=== PATIENT | male | born 1975 | race Two or more races ===

== ENCOUNTER 2018-09-20 00:40 | Emergency (ER) | payer OTHER ==
[~2018-09-20] VITALS: Ht 160 cm; Wt 68.9 kg
--- NOTE | 2018-09-20 01:01 | NUR ---
ED Nurse Note: PT AMBULATED TO ED C/O R UPPER EYEBROW HEAD LAC X 1 HOUR S/P ACCIDENTLY GETTING HIT ON HEAD BY GLASS. LACERATION CLEANLY DRESSED PRIOR TO ARRIVAL.
--- NOTE | 2018-09-20 01:02 | NUR ---
ED Nurse Note: PT DENIES LOC, BUT STATES SOME DIZZINESS
[2018-09-20 01:03] VITALS: BP 132/80
--- NOTE | 2018-09-20 01:29 | Emergency Room Report ---
History of Present Illness General Chief Complaint: Laceration Source: Patient Present Illness HPI Is a 42-year-old male with no past medical history. He presents with chief complaint of right eyebrow laceration. This occurred after work. He ran into his coworker who was carrying a last. He sustained a laceration above his right eyebrow. No loss of consciousness. No other injury. Pain is throbbing in nature. No nausea no vomiting but no fever chills. Allergies: Coded Allergies: No Known Allergies (Unverified , 09/20/18) Patient History Past Medical History: see triage record, old chart reviewed Past Surgical History: none Pertinent Family History: none Social History: Denies: smoking Immunizations: other Reviewed Nursing Documentation: PMH: Agreed; PSxH: Agreed Nursing Documentation-PMH Past Medical History: No Stated History Review of Systems Eye: Denies: eye pain, blurred vision ENT: Denies: ear pain, nose congestion, throat swelling Respiratory: Denies: cough, shortness of breath Cardiovascular: Denies: chest pain, palpitations Gastrointestinal: Denies: abdominal pain, diarrhea, nausea, vomiting Musculoskeletal: Denies: back pain, joint pain Skin: Denies: rash Neurological: Denies: headache, numbness Endocrine: Denies: increased thirst, increased urine Hematologic/Lymphatic: Denies: easy bruising All Other Systems: negative except mentioned in HPI Physical Exam Vital Signs Date Time Temp Pulse Resp B/P (MAP) Pulse Ox O2 Delivery O2 Flow Rate FiO2 09/20/18 01:01 98.2 80 18 132/80 (97) 97 Room Air Vitals normal Sp02 EP Interpretation: reviewed, normal General Appearance: well appearing, no apparent distress, alert Head: normocephalic, other - 2 cm Laceration to the right eyebrow. No foreign body. Eyes: bilateral eye PERRL, bilateral eye EOMI ENT: hearing grossly normal, normal pharynx Neck: full range of motion, supple, no meningismus Respiratory: chest non-tender, lungs clear, normal breath sounds Cardiovascular #1: regular rate, rhythm, no murmur Gastrointestinal: normal bowel sounds, non tender, no mass, no organomegaly, no bruit, non-distended Musculoskeletal: back normal, gait/station normal, normal range of motion Psychiatric: mood/affect normal Procedures Laceration/Wound Repair Laceration/Wound Repair : Consent: Verbal Wound Location: face Wound's Depth, Shape: linear Wound Length (cm): 2 Wound Explored: clean Irrigated w/ Saline (ccs): 500 Anesthesia: 1% Lidocaine Volume Anesthetic (ccs): 2 Wound Repaired With: sutures Suture Size/Type: 4:0, other - Rapid Vicryl Number of Sutures: 4 Patient Tolerated: Well Complications: None Medical Decision Making Diagnostic Impression: Primary Impression: Laceration of eyebrow, right Qualified Codes: S01.111A - Laceration without foreign body of right eyelid and periocular area, initial encounter ER Course Presents with a right eyebrow laceration. No foreign body. Will discharge home. Last Vital Signs Date Time Temp Pulse Resp B/P (MAP) Pulse Ox O2 Delivery O2 Flow Rate FiO2 09/20/18 01:03 98.2 81 18 132/80 97 Room Air Status: improved Disposition: HOME, SELF-CARE Condition: Stable Patient Instructions: Laceration Care, Adult Additional Instructions: Follow up your doctor in 7 days. Suture will fall off. Return if worse. Nathan Moody MD Sep 20, 2018 01:29
[2018-09-20] MEDS ORDERED: Bacitracin Oint UD TOPIC ONE (01:30)
--- NOTE | 2018-09-20 01:33 | NUR ---
ER DISCHARGE NOTE: Patient is cleared to be discharged per ERMD, pt is aox4, on room air, with stable vital signs. pt was given dc and prescription instructions, pt was able to verbalize understanding, pt id band removed pt is able to ambulate with steady gait. laceration dressed. pt took all belongings.
[2018-09-20 01:34] VITALS: BP 119/79
== END 2018-09-20 01:33 | disposition home or self-care (01) ==
LOC: EMR 01:13
DX: S01.111A Laceration without foreign body of right eyelid and periocular area, initial encounter (principal); X58.XXXA Exposure to other specified factors, initial encounter; Y92.9 Unspecified place or not applicable
CPT/HCPCS: 99282